=== PATIENT | female | born 1995 | race Caucasian/White ===

== ENCOUNTER 2018-05-18 15:07 | Inpatient (IN) | payer OTHER ==
[2018-05-18 16:14] LABS: Basophils % (A) 0 %; Eosinophils # (A) 0.1 k/uL (0-0.7); Eosinophils % (A) 1 %; HCT 28.4 % (34.0-46.0); HGB 9.2 gm/dL (11.4-16.0); Hypochromasia Moderate; Lymphocytes % (A) 13 %; MCH 24.1 pg (25.0-35.0); MCHC 32.5 g/dL (31.0-37.0); Microcytosis Slight; Monocytes # (A) 0.4 k/uL (0-1.0); Monocytes % (A) 5 %; Neutrophils % (A) 79 %; Platelet Count 211 k/uL (150-450); Poikilocytosis Slight; RBC 3.84 m/uL (3.80-5.40); RDW 13.6 % (11.5-15.5); WBC 7.6 k/uL (3.8-10.6)
--- NOTE | 2018-05-18 16:48 | US ---
EXAMINATION TYPE: US OB >= 14 wk fetus DATE OF EXAM: 05/18/2018 COMPARISON: None CLINICAL HISTORY: questionable edc, new transfer from [facility]. state. Difficult exam due to low fluid TECHNIQUE: Transabdominal (TA) GESTATIONAL AGE / DATING Physician Established: Not yet established Dates by LMP: LMP unknown Dates by First Scan: No previous this is first scan at this facility Dates by Current Scan: (35 weeks/3 days) EDC: 06/19/2018 SURVEY IUP: Single PLACENTA: Anterior PREVIA: No Previa NATWON: 4.5 cm Oligohydramnios CERVICAL LENGTH (transabdominal: norm > 3.0cm): 3.0 cm BIOMETRY PRESENTATION: Vertex LIE: Longitudinal BPD: 8.6 cm 34 weeks / 4 days HC: 31.6 cm 35 weeks / 3 days AC: 34.6 cm 38 weeks / 3 days 35 weeks / 3 days ESTIMATED WEIGHT IN GRAMS: 3079 grams ESTIMATED WEIGHT IN LBS/OZ: 6 lbs. 13 oz. HC/AC: 0.91 Abnormal FL/AC: 19.97 Abnormal HEART RATE: 149 bpm RHYTHM: Normal Viable IUP with an BERNARDA of 06/19/2018 by this exam. Oligohydramnios. abdomen measuring larger th an femur length and head. Difficult exam due to low fluid . FL: 6.9 cm IMPRESSION: Amniotic fluid index is lower limit of normal at 5 cm. the ultrasound gestational age is 35 weeks 3 days. The BERNARDA is 06/19/2018. Estimated weight is 307 9 g
[2018-05-18] MEDS ORDERED: DINOPROSTONE 10 MG INSERT.ER VAGINAL ONE (19:57)
[2018-05-18] MEDS ORDERED: BUTORPHANOL 1 MG/ML 1 ML VIAL IV PRN (19:57)
--- NOTE | 2018-05-18 20:04 | P.HPOB ---
History of Present Illness H&P Date: 05/18/18 Chief Complaint: Intrauterine at term: Oligohydramnios Patient is a 22-year-old at 37 weeks 1 day gestation who arrived to my office today for initial OB visit as a transfer patient. She relates that her only significant problems with with this has been diagnosis of gestational diabetes for which she is diet controlled. She relates all of her 1 hour Glucola checks have been in the 1:30 range and she has had no elevations of her Glucola at 1 hour and her fastings in a.m. have also been normal. She is otherwise not had any significant problems but has had somewhat sporadic care due to moving on more than one occasion is seen at least 2 other obstetricians. On evaluation the office stating there was need to clarify exactly how far along she was as her wrist some competing dates listed in her chart as well as we do not have any for labs from her previous doctor so we are going to order those. She was sent to labor and delivery for an NST due to gestational diabetes as well as an ultrasound for size and dates. Ultrasound revealed baby to be slightly small for dates but more importantly showed an ANTWON of less than 5. Unclear reason for the low ANTWON. In discussing with both she and her the decision to induce her was made with the expectation that we would do Cervidil ripening tonight with induction of labor in a.m. due to same. She was aware of risk of cord accident other problems with low ANTWON and since I have no other information on her and she's had no other care by me I was sitting in normal state advantage in making decisions moving forward. Risks of failure of induction were discussed and she is aware that there is an increased risk of section simply by doing an induction particularly in the face of a unripened cervix. Past Medical History History of Any Multi-Drug Resistant Organisms: None Reported Smoking Status: Former smoker Medications and Allergies Home Medications Medication Instructions Recorded Confirmed Type Pnv,Calcium 72/Iron/Folic Acid 1 tab PO DAILY 05/18/18 05/18/18 History [ Plus Tablet] Allergies Allergy/AdvReac Type Severity Reaction Status Date / Time Latex, Natural Rubber Allergy Rash/Hives Verified 05/18/18 15:31 Exam Osteopathic Statement: *. No significant issues noted on an osteopathic structural exam other than those noted in the History and Physical/Consult. Intake and Output 05/18/18 05/18/18 05/18/18 06:59 14:59 22:59 Other: Weight 91.172 kg - OBG Physical Exam Breast: both: normal (no masses) Abdomen: bowel sounds normal, no diffuse tenderness, no bruit present, no guarding noted, no hepatomegaly, no splenomegaly, no mass Vulva: both: normal Vagina: normal moisture, no discharge Cervix: no lesion, no discharge Uterus: normal size, normal contour Adnexa: both: normal Anus/Rectum: normal perianal skin, no rectal mass, no hemorrhoids, heme negative Results Result Diagrams: 05/18/18 15:51 05/18/18 15:51 Abnormal Lab Results - Last 24 Hours (Table) 05/18/18 Range/Units 15:51 Hgb 9.2 L (11.4-16.0) gm/dL Hct 28.4 L (34.0-46.0) % MCV 74.0 L (80.0-100.0) fL MCH 24.1 L (25.0-35.0) pg
[2018-05-18 21:19] VITALS: BMI 35.6
[2018-05-18] MEDS ORDERED: ZOLPIDEM 5 MG TAB PO PRN (21:39)
[2018-05-19 01:19] LABS: HIV AB P24 Non-Reactive (Non-Reactive); HIV P24 AG Non-Reactive (Non-Reactive)
[2018-05-19] MEDS ORDERED: LIDOCAINE 1% (PF) 10 MG/ML (30 ML SDV) SQ PRN (06:00)
[2018-05-19] MEDS ORDERED: TERBUTALINE 1 MG/ML VIAL SQ PRN (06:00)
[2018-05-19] MEDS ORDERED: CARBOPROST TROMETHAMINE 250 MCG/ML 1 ML AMP IM PRN (06:00)
[2018-05-19] MEDS ORDERED: OXYTOCIN 20 UNITS/1000 ML NS 1,000 ML IV SCH (06:00)
[2018-05-19] MEDS ORDERED: OXYTOCIN 10 UNIT/ML 1 ML VIAL IM PRN (06:00)
[2018-05-19] MEDS ORDERED: METHYLERGONOVINE 0.2 MG/ML 1 ML AMP IM PRN (06:00)
[2018-05-19] MEDS ORDERED: AMPICILLIN 2,000 MG in SODIUM CHLORIDE 0.9% 100 ML IVPB ONE (06:00)
[2018-05-19] MEDS: LACTATED RINGERS 1,000 ML IV SCH ×3 (06:26→22:33)
[2018-05-19 07:19] LABS: Basophils % (A) 0 %; Eosinophils # (A) 0.1 k/uL (0-0.7); Eosinophils % (A) 1 %; HCT 31.7 % (34.0-46.0); HGB 10.2 gm/dL (11.4-16.0); Hypochromasia Slight; Lymphocytes # (A) 1.2 k/uL (1.0-4.8); Lymphocytes % (A) 11 %; MCH 23.7 pg (25.0-35.0); MCHC 32.2 g/dL (31.0-37.0); MCV 73.6 fL (80.0-100.0); Mean Platelet Volume 9.6; Microcytosis Slight; Monocytes # (A) 0.6 k/uL (0-1.0); Monocytes % (A) 5 %; Neutrophils # (A) 9.2 k/uL (1.3-7.7); Neutrophils % (A) 81 %; Platelet Count 211 k/uL (150-450); RDW 13.9 % (11.5-15.5); WBC 11.3 k/uL (3.8-10.6)
[2018-05-19] MEDS: AMPICILLIN 1,000 MG in SODIUM CHLORIDE 0.9% 50 ML IVPB SCH ×3 (10:32→22:32)
[2018-05-19] MEDS ORDERED: ROPIVACAINE 100 MG, fentaNYL (PF) 200 MCG in SODIUM CHLORIDE 0.9% 76 ML EPIDURAL ONE (12:13)
[2018-05-19] MEDS ORDERED: MEASLES-MUMPS-RUBELLA VACC/PF 12,500 UNIT/0.5 ML VIAL SQ ONE (19:27)
[2018-05-19] MEDS ORDERED: diphenhydrAMINE 25 MG CAP PO PRN (19:27)
[2018-05-19] MEDS ORDERED: ACETAMINOPHEN TAB 325 MG TAB PO PRN (19:27)
[2018-05-19] MEDS ORDERED: diphenhydrAMINE 50 MG CAP PO PRN (19:27)
[2018-05-19] MEDS ORDERED: HYDROCORTISONE 2.5% RECTAL CREAM 30 GM TUBE RECTAL PRN (19:27)
[2018-05-19] MEDS ORDERED: SIMETHICONE 80 MG CHEWABLE PO PRN (19:27)
[2018-05-19] MEDS ORDERED: diphenhydrAMINE 50 MG/ML 1 ML VIAL IVP PRN ×2 (19:27)
[2018-05-19] MEDS ORDERED: WITCH HAZEL 1 EACH MED..PAD TOPICAL PRN (19:27)
[2018-05-19] MEDS ORDERED: BENZOCAINE/MENTHOL SPRAY 1 GM/SPRAY AEROSOL TOPICAL PRN (19:27)
[2018-05-19] MEDS ORDERED: ZOLPIDEM 5 MG TAB PO PRN (19:27)
[2018-05-19] MEDS ORDERED: LANOLIN CREAM 5 GM TUBE TOPICAL PRN (19:27)
--- NOTE | 2018-05-19 19:30 | P.PROBDLV ---
Vaginal Delivery Note - . Vaginal Delivery Note: Patient progressed to complete and pushing with spontaneous vaginal delivery of a viable female over an intact perineum. Falling deliver the head from right occiput anterior position the anterior shoulder was not easily delivering but posterior shoulder had already essentially delivered so we rotated the baby clockwise fashion and posterior shoulder and remainder of baby fully were delivered without difficulty competitions. Once baby was out mouth nares were bulb suctioned and baby was placed on mother's abdomen where the umbilical cord was clamped and cut in usual fashion. Placenta was then delivered intact and Pitocin was added to the IV. scores were 7 and 9 at one and 5 minutes respectively and the weight was 6 lbs. 12 oz. Both mother and baby are stable following delivery.
[2018-05-19] MEDS: SENNOSIDES-DOCUSATE SODIUM 1 EACH TAB PO SCH (22:32)
[2018-05-20] MEDS: IBUPROFEN 600 MG TAB PO PRN ×3 (04:13→18:32)
--- NOTE | 2018-05-20 08:22 | P.DS ---
Providers Date of admission: 05/18/18 19:31 Expected date of discharge: 05/20/18 Attending physician: John Uriarte Primary care physician: Stated None Hospital Course: Patient is doing very well day 1. She is ambulating, voiding, and she is tolerating her diet. She voices no complaints. Vital signs are stable and afebrile. Heart regular, lungs clear, extremities without pain. Abdomen is soft uterus is firm lochia is reported be light. Assessment day 1. Plan discharged home follow up with me in 6 weeks. Discharge instructions were thoroughly reviewed and all questions are answered for her prior to her discharge. Patient Condition at Discharge: Good Plan - Discharge Summary Discharge Rx Participant: No New Discharge Prescriptions: No Action Pnv,Calcium 72/Iron/Folic Acid [ Plus Tablet] 1 tab PO DAILY Discharge Medication List Pnv,Calcium 72/Iron/Folic Acid [ Plus Tablet] 1 tab PO DAILY 05/18/18 [ History] Follow up Appointment(s)/Referral(s): John Uriarte DO [Doctor of Osteopathic Medicine] - 6 Weeks Activity/Diet/Wound Care/Special Instructions: No heavy lifting, limit stairs and driving, and pelvic rest. If any high temperatures, heavy bleeding, or severe pain call my office Discharge Disposition: HOME SELF-CARE
[2018-05-20 09:14] VITALS: RESP 18
[2018-05-20] MEDS: SENNOSIDES-DOCUSATE SODIUM 1 EACH TAB PO SCH (11:17)
[2018-05-20 19:00] VITALS: BP 134/84; PULSE 78; TEMP 98.4
== END 2018-05-20 19:40 | disposition home or self-care (01) | DRG 775 ==
LOC: FBPOP 15:07 → 4FBP 19:31
PROVIDERS: ADMIT Obstetrics & Gynecology; ATTEND Obstetrics & Gynecology
PROC: 3E0P7VZ Introduction of Hormone into Female Reproductive, Via Natural or Artificial Opening (ICD-10-PCS; principal; 2018-05-18)
PROC: 10E0XZZ Delivery of Products of Conception, External Approach (ICD-10-PCS; 2018-05-19)
DX: O41.03X0 Oligohydramnios, third trimester, not applicable or unspecified (principal); O24.420 Gestational diabetes mellitus in childbirth, diet controlled; O36.5930 Maternal care for other known or suspected poor fetal growth, third trimester, not applicable or unspecified; Z3A.37 37 weeks gestation of pregnancy; Z37.0 Single live birth; Z91.040 Latex allergy status; Z87.891 Personal history of nicotine dependence
CPT/HCPCS: 76805; 82947; 85025; 86762; 86780; 86850; 86900; 86901; 87340; 87390; 88307